=== PATIENT | male | born 1985 | race Caucasian/White ===

== ENCOUNTER 2017-08-22 16:28 | Emergency (ER) | payer BC ==
[2017-08-22 18:04] LABS: BASO # 0.1 K/uL (0.0-0.2); BASO % 0.5 % (0.0-2.0); EOS # 0.1 K/uL (0.0-0.7); LYMPH # 1.5 K/uL (1.0-4.3); MEAN CELL VOLUME 89.8 fl (80.0-94.0); MEAN CORPUSCULAR HEMOGLOBIN 30.4 pg (27.0-31.0); MEAN CORPUSCULAR HGB CONC 33.9 g/dL (33.0-37.0); MEAN PLATELET VOLUME 8.3 fl (7.2-11.7); MONO # 1.4 K/uL (0.0-0.8); NEUT # 9.7 K/uL (1.8-7.0); NEUT % 75.5 % (50.0-75.0); NRBC % 0.2 % (0.0-0.0); RBC 4.92 Mil/uL (4.40-5.90); RED CELL DISTRIBUTION WIDTH 12.8 % (11.5-14.5); WHITE BLOOD COUNT 12.9 K/uL (4.8-10.8)
[2017-08-22 18:15] LABS: ALB/GLOB RATIO 1.3 (1.0-2.1); ALBUMIN 4.7 g/dL (3.5-5.0); ALT/SGPT 33 U/L (21-72); AST/SGOT 23 U/L (17-59); BLOOD UREA NITROGEN 6 mg/dl (9-20); CALCIUM 9.8 mg/dL (8.4-10.2); GFR AFRICAN-AMERICAN > 60; GFR NON-AFRICAN AMERICAN > 60
--- NOTE | 2017-08-22 20:05 | ED PDOC ---
HPI: General Adult Time Seen by Provider: 08/22/17 16:47 Chief Complaint (Nursing): Fever Chief Complaint (Provider): Feverish, body pain, neck pain History Per: Patient History/Exam Limitations: no limitations Onset/Duration Of Symptoms: Days Have you had recent travel within the past 21 days to any of the following countries: [place], [place], [place] or [place]?: No Current Symptoms Are (Timing): Still Present Past Medical History Vital Signs: Last Vital Signs Temp 98.2 F 08/22/17 16:37 Pulse 84 08/22/17 16:37 Resp 18 08/22/17 16:37 BP 113/65 08/22/17 16:37 Pulse Ox 99 08/22/17 16:37 - Immunization History Hx Tetanus Toxoid Vaccination: No Hx Influenza Vaccination: No Hx Pneumococcal Vaccination: No - Allergies Allergies/Adverse Reactions: Allergies Allergy/AdvReac Type Severity Reaction Status Date / Time No Known Allergies Allergy Verified 08/22/17 16:36 - Laboratory Results Result Diagrams: 08/22/17 17:55 08/22/17 17:55 - ECG O2 Sat by Pulse Oximetry: 99 Disposition - Clinical Impression Clinical Impression: Fever - Patient ED Disposition Is Patient to be Admitted: Transfer of Care - Disposition Disposition: Transfer of Care Disposition Time: 20:05 Condition: GOOD
--- NOTE | 2017-08-22 20:25 | ED PDOC ---
"- Laboratory Results Result Diagrams: 08/22/17 17:55 08/22/17 17:55 - ECG O2 Sat by Pulse Oximetry: 99 - Progress ED Course And Treament: FINDINGS: Brain: Unremarkable. No mass. No hemorrhage. No acute infarct. Ventricles: Unremarkable. No ventriculomegaly. Bones/joints: Unremarkable. Sinuses: Ethmoid air cell fluid. Mastoid air cells: Unremarkable as visualized. No mastoid effusion. Orbits: Unremarkable as visualized. IMPRESSION: No acute intracranial finding. Thank you for allowing us to participate in the care of your patient. Dictated and Authenticated by: Shawn Mcintyre, On repeat interview, patient states he has pleuritic chest pain associated with near syncope EKG:NSR 88 bpm no ectopy; no acute changes D dimer elevated troponin neg cta chest MPRESSION: No pulmonary embolism or other acute finding in the chest. AMINATA LAGUNA | Preliminary Radiology Report PATIENT ACCESS DIRECTOR (QA) DISCREPANCY? If there is a discrepancy between the preliminary and final interpretation, please notify [employer] via [email or web address]. If you do not have access to our QA portal, call our QA team at [phone] CONFIDENTIALITY STATEMENT This report is intended only for the use of the referring physician, and only in accordance with law, If you received this in error, call [phone] Page 2 of 2 Thank you for allowing us to participate in the care of your patient. Dictated and Authenticated by: Shawn Mcintyre MD Disposition - Clinical Impression Clinical Impression: Fever - POA Present On Arrival: None - Disposition Disposition: Routine/Home Disposition Time: 00:03 Condition: FAIR Prescriptions: Ibuprofen [Motrin] 600 mg PO Q8 PRN #10 tab PRN Reason: Fever >100.4 F Instructions: Viral Syndrome (ED) Forms: [employer] (Armenian), [employer] ED School/Work Excuse"
[2017-08-22] MEDS ORDERED: Sodium Chloride 0.9% 1,000 ML IV STA (20:47)
[2017-08-22 21:16] LABS: MAGNESIUM 1.9 MG/DL (1.6-2.3)
[2017-08-22] MEDS ORDERED: Sodium Chloride 0.9% 50 ML IV ONE (22:42)
[2017-08-22] MEDS ORDERED: Iodixanol 320 MG/ML 100 ML BOTTLE IV ONE (22:42)
[2017-08-23 00:09] VITALS: BP 118/64; PULSE 98; RESP 16; O2SAT 95
[2017-08-23 00:19] VITALS: TEMP 100.7
--- NOTE | 2017-08-23 08:56 | CT ---
PROCEDURE: CT Chest with contrast (Pulmonary Angiogram) HISTORY: r/o PE COMPARISON: None available. TECHNIQUE: Axial computed tomography images were obtained of the chest in the pulmonary arterial phase of enhancement. Coronal and sagittal reformatted images were created and reviewed. Intravenous contrast dose: 90 mL Visipaque 320 Radiation dose: Total exam DLP = 367.9 mGy-cm. This CT exam was performed using one or more of the following dose reduction techniques: Automated exposure control, adjustment of the mA and/or kV according to patient size, and/or use of iterative reconstruction technique. FINDINGS: PULMONARY ARTERIES: Unremarkable. No pulmonary embolism. AORTA: No acute findings. No thoracic aortic aneurysm. LUNGS: Unremarkable. No nodule, mass or pulmonary consolidation. PLEURAL SPACES: Unremarkable. No effusion or pneumothorax. HEART: Unremarkable. No cardiomegaly. No significant pericardial effusion. LYMPH NODES: No lymphadenopathy. BONES, CHEST WALL: Unremarkable. No fracture or destructive lesion OTHER FINDINGS: Unremarkable. IMPRESSION: Unremarkable CT pulmonary angiogram. No pulmonary embolus.
--- NOTE | 2017-08-23 11:42 | MRI ---
PROCEDURE: MRI BRAIN WITHOUT CONTRAST HISTORY: Headache. Fever ; possible LP COMPARISON: None . TECHNIQUE: Multiplanar, multisequence MR images of the brain were obtained without intravenous contrast enhancement. FINDINGS: HEMORRHAGE: No acute parenchymal, subarachnoid or extra-axial hemorrhage. No hemosiderin deposition identified on gradient echo weighted sequence. . DWI: No evidence of an acute or early subacute infarction seen on diffusion imaging. BRAIN PARENCHYMA: No focal areas of abnormal signal seen within the substance of the brain. The the. No obvious parenchymal nor extra-axial mass or collection seen on this noncontrast exam VENTRICLES: No obstructive the hydrocephalus. CRANIUM: No gross calvarial abnormalities at so far as can be seen ORBITS: Orbits and contents appear grossly unremarkable. . PARANASAL SINUSES/MASTOIDS: Mild the-moderate mucosal thickening seen within ethmoid air complex extending superiorly into the frontal. sinus. Minor mucosal thickening right maxillary antrum with what probably represents a small focus polypoid like mucosal thickening left maxillary antrum. Minimal mucosal thickening within the sphenoid sinus. VASCULAR SYSTEM: The visualized major vascular flow voids at skull base are patent. OTHER FINDINGS: None. IMPRESSION: No acute intracranial hemorrhage or infarct. No evidence of obstructive hydrocephalus. Mucoperiosteal inflammatory changes within the aforementioned paranasal sinuses. Note that preliminary report provided by overnight radiology service.
--- NOTE | 2017-08-23 18:10 | CARD ---
APPROVED REPORT EKG Measurement Heart [id number] <Conclusion> Normal sinus rhythm Possible Left atrial enlargement Borderline ECG
== END 2017-08-23 00:39 | disposition home or self-care (01) ==
LOC: H.ER 16:28
DX: B34.9 Viral infection, unspecified (principal)
CPT/HCPCS: 70551; 71275; 80053; 83735; 84484; 85025; 85378; 87040; 87804; 93005; 96360; 99284; J7040; Q9967

== ENCOUNTER 2017-12-06 17:09 | Emergency (ER) | payer BC ==
[2017-12-06 17:23] VITALS: BP 122/75; PULSE 88; RESP 18; TEMP 97.3; O2SAT 98
[2017-12-06] MEDS ORDERED: Tdap Vaccine 0.5 ml Vial (10-64 yrs) IM ONE ×2 (18:03→19:11)
--- NOTE | 2017-12-06 19:01 | ED PDOC ---
HPI: Skin/Bite Injury Time Seen by Provider: 12/06/17 17:25 Chief Complaint (Nursing): Bite Chief Complaint (Provider): Bite History Per: Patient History/Exam Limitations: no limitations Onset/Duration Of Symptoms: Days (x11) Current Symptoms Are (Timing): Gone Now Location Of Injury: Left: Ankle, Posterior: Ankle Additional Complaint(s): 32 year old male presents to the ED complaining of a dog bite while in [facility] , 11 days prior to arrival. Patient reports he was travelling in [facility] when he was bit in the posterior L ankle. Patient was seen and treated in a clinic in [facility]. Patient was given day 0 and day 3 of rabies vaccine while in [facility]. However, patient did not receive antibiotics or tetanus vaccine as they were not available at the clinic he was treated at. Patient reports the initial bite was merely a small area of redness on his skin of the posterior L ankle, no actual puncture wounds sustained from the bite. Since then, wound has completely healed with no residual josue. Otherwise (-) fever, (-) chills, (-) joint pain, (-) swelling, (-) decreased ROM or numbness. In addition, patient is now requesting for an STD test because he does not trust the vials of rabies vaccine that was administered to him. Patient believes it was compromised. Otherwise (-) genital rash, (-) painful urination. There are no other complaints at this time. Past Medical History Reviewed: Historical Data, Nursing Documentation, Vital Signs Vital Signs: Last Vital Signs Temp 97.3 F L 12/06/17 17:19 Pulse 88 12/06/17 17:19 Resp 18 12/06/17 17:19 BP 122/75 12/06/17 17:19 Pulse Ox 98 12/06/17 19:09 - Surgical History Surgical History: No Surg Hx - Family History Family History: States: Unknown Family Hx - Immunization History Hx Tetanus Toxoid Vaccination: No Hx Influenza Vaccination: No Hx Pneumococcal Vaccination: No - Home Medications Home Medications: Ambulatory Orders Medication Instructions Recorded Ibuprofen [Motrin] 600 mg PO Q8 PRN #10 tab 08/23/17 Oseltamivir Phosphate [Tamiflu] 75 mg PO BID #9 capsule 08/23/17 - Allergies Allergies/Adverse Reactions: Allergies Allergy/AdvReac Type Severity Reaction Status Date / Time lactulose AdvReac NAUSEA Verified 12/06/17 17:23 Review of Systems Musculoskeletal: Positive for: Foot Pain (dog bite to posterior left ankle ) Physical Exam - Reviewed Nursing Documentation Reviewed: Yes Vital Signs Reviewed: Yes - Physical Exam Comments: GENERAL APPEARANCE: Patient is awake, alert, oriented x 3, in no acute distress. SKIN: Warm, dry; (-) cyanosis. LOWER EXTREMITY: Ankle: (-) swelling, tenderness, erythema of the L ankle; (+) full range of motion. Achilles tendon intact and nontender. Knee and foot: (-) deformity. CARDIOVASCULAR: (+) distal pulse. NEUROLOGIC: (+) distal sensation. - ECG O2 Sat by Pulse Oximetry: 98 (RA) Pulse Ox Interpretation: Normal Medical Decision Making Medical Decision Making: Time: 1802 Plan: -- Tetanus/Reduced Dipht/Acell Pe [Adacel (10-64 years)] 0.5 ml IM. Once -- Rabies Vaccine [Rabavert Vaccine Inj] 2.5 unites IM. Once Rabies day 7 and tetanus vaccinations were given to the patient. Patient was strongly advised to follow up with clinic for STD testing and return to the ER for day 14 of rabies vaccination. Patient states he fully agrees with and understands discharge instructions. States that he agrees with the plan and disposition. Verbalized and repeated discharge instructions and plan. I have given the patient opportunity to ask any additional questions. Scribe Attestation: Documented by Hilton Mclean, acting as a scribe for Елена Monreal PA-C. Provider Scribe Attestation: All medical record entries made by the Scribe were at my direction and personally dictated by me. I have reviewed the chart and agree that the record accurately reflects my personal performance of the history, physical exam, medical decision making, and the department course for this patient. I have also personally directed, reviewed, and agree with the discharge instructions and disposition. Disposition - Clinical Impression Clinical Impression: Need for rabies vaccination - Patient ED Disposition Is Patient to be Admitted: No Counseled Patient/Family Regarding: Diagnosis, Need For Followup - Disposition Referrals: [facility] [Outside] Disposition: Routine/Home Disposition Time: 18:15 Condition: STABLE Additional Instructions: Thank you for letting us take care of you today. You were treated for need for day 7 rabies vaccination. The emergency medical care you received today was directed at your acute symptoms. Return to the ER for day 14 rabies vaccine. Return to the Emergency Department if your symptoms worsen, do not improve, or if you have any other problems. Please contact your doctor in 2 days for re-evaluation and follow up / or call one of the physicians/clinics you have been referred to that are listed on the Patient Visit Information form that is included in your discharge packet. Bring any paperwork you were given at discharge with you along with any medications you are taking to your follow up visit. Our treatment cannot replace ongoing medical care by a primary care provider (PCP) outside of the emergency department. Thank you for allowing the [facility] team to be part of your care today. Instructions: Rabies Vaccine Forms: [employer]) Connect (Libyan) - PA / RESEARCH SPEC / Resident Statement MD/DO has reviewed & agrees with the documentation as recorded.
== END 2017-12-06 19:37 | disposition home or self-care (01) ==
LOC: H.ER 17:09
DX: S91.052D Open bite, left ankle, subsequent encounter (principal); W54.0XXA Bitten by dog, initial encounter; Z23 Encounter for immunization

== ENCOUNTER 2017-12-13 17:17 | Emergency (ER) | payer BC ==
[2017-12-13 17:30] VITALS: BP 134/79; PULSE 71; RESP 16; TEMP 97.7; O2SAT 97
[2017-12-13 17:31] VITALS: BMI 21.5
--- NOTE | 2017-12-13 20:04 | ED PDOC ---
HPI: General Adult Time Seen by Provider: 12/13/17 17:49 Chief Complaint (Nursing): Rabies Vaccine Series Chief Complaint (Provider): Rabies vaccine series History Per: Patient History/Exam Limitations: no limitations Additional Complaint(s): 32 year old male presented to ED for day 14 of rabies vaccination. Patient obtained day 0 and day 3 vaccinations in [facility]. Patient also reports nasal congestion and facial pain for 5 days and patient has history of chronic sinusitis. He has had 2 surgeries in the past for it and states levaquin provides good relief. Denies fever, trauma, and sore throat. PCP: none provided Past Medical History Reviewed: Historical Data, Nursing Documentation, Vital Signs Vital Signs: Last Vital Signs Temp 97.7 F 12/13/17 17:29 Pulse 71 12/13/17 17:29 Resp 16 12/13/17 17:29 BP 134/79 12/13/17 17:29 Pulse Ox 97 12/13/17 20:09 - Medical History Other PMH: chronic sinusitis - Surgical History Surgical History: No Surg Hx - Family History Family History: States: No Known Family Hx - Social History Current smoker - smoking cessation education provided: No Alcohol: Social Drugs: Denies - Immunization History Hx Tetanus Toxoid Vaccination: No Hx Influenza Vaccination: No Hx Pneumococcal Vaccination: No - Home Medications Home Medications: Ambulatory Orders Medication Instructions Recorded Ibuprofen [Motrin] 600 mg PO Q8 PRN #10 tab 08/23/17 Oseltamivir Phosphate [Tamiflu] 75 mg PO BID #9 capsule 08/23/17 levoFLOXacin [Levaquin] 500 mg PO DAILY #5 tab 12/13/17 - Allergies Allergies/Adverse Reactions: Allergies Allergy/AdvReac Type Severity Reaction Status Date / Time lactulose AdvReac NAUSEA Verified 12/06/17 17:23 Review of Systems ROS Statement: Except As Marked, All Systems Reviewed And Found Negative Constitutional: Negative for: Fever, Other (trauma) ENT: Positive for: Nose Congestion. Negative for: Throat Pain (sore throat) Physical Exam - Reviewed Nursing Documentation Reviewed: Yes Vital Signs Reviewed: Yes - Physical Exam Appears: Positive for: Non-toxic, No Acute Distress Head Exam: Positive for: ATRAUMATIC Skin: Positive for: Normal Color, Warm, Dry Eye Exam: Positive for: Normal appearance ENT: Positive for: TM Is/Are (nonerythematous and nonbulging), Sinus Pain/ Drainage (bilateral pain in malar area), Pharyngeal Erythema, Other (tonsillar erythema) - ECG O2 Sat by Pulse Oximetry: 97 Medical Decision Making Medical Decision Making: Initial Impression: Rabies vaccination, nasal congestion Initial Plan: Rabies vaccine 2.5 units IM Scribe Attestation: Documented by Porfirio Almeida acting as a scribe for Choco Betancur Provider Scribe Attestation: All medical record entries made by the Scribe were at my direction and personally dictated by me. I have reviewed the chart and agree that the record accurately reflects my personal performance of the history, physical exam, medical decision making, and the department course for this patient. I have also personally directed, reviewed, and agree with the discharge instructions and disposition. Disposition - Clinical Impression Clinical Impression: Need for rabies vaccination, Acute sinusitis - Patient ED Disposition Is Patient to be Admitted: No - Disposition Disposition: Routine/Home Disposition Time: 19:00 Condition: STABLE Additional Instructions: Return to ED immediately for any concerns or questions Prescriptions: levoFLOXacin [Levaquin] 500 mg PO DAILY #5 tab Instructions: Rabies Vaccine Forms: [employer] (Japanese) Print Language: FAROESE
== END 2017-12-13 19:03 | disposition home or self-care (01) ==
LOC: H.ER 17:17
DX: Z20.3 Contact with and (suspected) exposure to rabies (principal); J01.90 Acute sinusitis, unspecified

== ENCOUNTER 2017-12-27 17:12 | Emergency (ER) | payer BC ==
[2017-12-27 17:12] VITALS: BMI 21.5
[2017-12-27 17:41] VITALS: BP 108/64; PULSE 75; RESP 16; TEMP 98.1; O2SAT 98
--- NOTE | 2017-12-27 18:12 | ED PDOC ---
HPI: General Adult Time Seen by Provider: 12/27/17 17:25 Chief Complaint (Nursing): Rabies Vaccine Series Chief Complaint (Provider): Rabies Vaccine Series History Per: Patient History/Exam Limitations: no limitations Additional Complaint(s): 32 year old male presents to the emergency department for his last doses of the rabies vaccine. Patient was bitten to the left ankle about 4 weeks ago. Denies further medical complaints. Past Medical History Reviewed: Historical Data, Nursing Documentation, Vital Signs Vital Signs: Last Vital Signs Temp 98.1 F 12/27/17 17:39 Pulse 75 12/27/17 17:39 Resp 16 12/27/17 17:39 BP 108/64 12/27/17 17:39 Pulse Ox 98 12/27/17 18:26 - Medical History PMH: No Chronic Diseases - Family History Family History: States: Unknown Family Hx - Immunization History Hx Tetanus Toxoid Vaccination: No Hx Influenza Vaccination: No Hx Pneumococcal Vaccination: No - Home Medications Home Medications: Ambulatory Orders Medication Instructions Recorded Ibuprofen [Motrin] 600 mg PO Q8 PRN #10 tab 08/23/17 Oseltamivir Phosphate [Tamiflu] 75 mg PO BID #9 capsule 08/23/17 levoFLOXacin [Levaquin] 500 mg PO DAILY #5 tab 12/13/17 - Allergies Allergies/Adverse Reactions: Allergies Allergy/AdvReac Type Severity Reaction Status Date / Time lactulose AdvReac NAUSEA Verified 12/06/17 17:23 Review of Systems ROS Statement: Except As Marked, All Systems Reviewed And Found Negative (As per HPI, otherwise negative) Constitutional: Positive for: Other (Rabies vaccine; last dose) Physical Exam - Reviewed Nursing Documentation Reviewed: Yes Vital Signs Reviewed: Yes - Physical Exam Appears: Positive for: Well, Non-toxic, No Acute Distress Head Exam: Positive for: ATRAUMATIC, NORMOCEPHALIC Skin: Positive for: Normal Color, Warm, Dry Eye Exam: Positive for: Normal appearance, EOMI Extremity: Positive for: Normal ROM. Negative for: Other (No sign of bite to the ankle. ) Neurologic/Psych: Positive for: Alert, Oriented (x3) - ECG O2 Sat by Pulse Oximetry: 98 (RA) Pulse Ox Interpretation: Normal Medical Decision Making Medical Decision Making: Time: 1742 Initial impression: Rabies Vaccine Initial plan: Rabies Vaccine 2.5 units IM Discharge Time: 1822 --Patient is medically clear for discharge. Given last dose of rabies vaccine. Scribe Attestation: Documented by Aracelis Friedman, acting as a scribe for Rosa Galindo PA-C. Provider Scribe Attestation: All medical record entries made by the Scribe were at my direction and personally dictated by me. I have reviewed the chart and agree that the record accurately reflects my personal performance of the history, physical exam, medical decision making, and the department course for this patient. I have also personally directed, reviewed, and agree with the discharge instructions and disposition. Disposition - Clinical Impression Clinical Impression: Need for rabies vaccination - Disposition Disposition: Routine/Home Disposition Time: 18:22 Condition: FAIR Forms: [employer] (Cymraes)
[2017-12-27] MEDS ORDERED: Silver Sulfadiazine 1% CREAM (50 gm) ONE (23:36)
== END 2017-12-27 18:30 | disposition home or self-care (01) ==
LOC: H.ER 17:12
DX: Z29.14 Encounter for prophylactic rabies immune globulin (principal)